=== PATIENT | male | born 1985 | race American Indian/Alaskan Native ===

== ENCOUNTER 2016-11-20 04:03 | Emergency (ER) | payer SELFPAY ==
[2016-11-20] MEDS ORDERED: BOOSTRIX IM ONE (05:31)
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
[2016-11-20] MEDS ORDERED: XYLOCAINE 1%/ EPI 1:100,000 INFILTRATI NR (06:00)
[2016-11-20] MEDS ORDERED: NORCO 10/325 PO ONE (06:04)
[2016-11-20 06:55] VITALS: BP 125/72
== END 2016-11-20 06:55 | disposition home or self-care (01) ==
LOC: ED 04:03
DX: S01.111A Laceration without foreign body of right eyelid and periocular area, initial encounter (principal); S01.81XA Laceration without foreign body of other part of head, initial encounter; Z72.0 Tobacco use; X58.XXXA Exposure to other specified factors, initial encounter; Y93.89 Activity, other specified; Y99.9 Unspecified external cause status; Y92.89 Other specified places as the place of occurrence of the external cause
CPT/HCPCS: 90471; 90715